=== PATIENT | female | born 1980 | race Caucasian/White ===

== ENCOUNTER 2018-06-24 00:03 | Emergency (ER) | payer MEDICAID ==
[~2018-06-24] VITALS: Ht 162.6 cm; Wt 104.3 kg
[2018-06-24 00:28] VITALS: Ht 162.6 cm; Wt 104.3 kg
[2018-06-24 02:24] VITALS: BP 163/89
== END 2018-06-24 02:24 | disposition home or self-care (01) ==
LOC: ED 00:03
DX: M25.562 Pain in left knee (principal)

== ENCOUNTER 2020-11-22 10:16 | Emergency (ER) | payer BC ==
[~2020-11-22] VITALS: Ht 165.1 cm; Wt 104.3 kg
[2020-11-22 10:28] VITALS: Ht 165.1 cm; Wt 104.3 kg
[2020-11-22 12:04] LABS: microscopic required? YES; urine erythrocyte NEGATIVE (NEGATIVE)
[2020-11-22 12:05] LABS: BASOPHIL % 0.9 % (0.2-1.3); PLATELET COUNT 375 x10^3mcL (179-408)
[2020-11-22 12:12] LABS: RED CELL DISTRIBUTION WIDTH 15.6 % (12.3-17.7)
[2020-11-22 12:18] LABS: CALCIUM 8.8 mg/dL (8.5-10.1); CARBON DIOXIDE 25.1 mmol/L (21-32); CHLORIDE SERUM 99 mmol/L (98-107); CREATININE SERUM 0.6 mg/dL (0.6-1.0); GFR1 > 60 mL/min; GLUCOSE SERUM 106 mg/dL (74-106); POTASSIUM SERUM 3.8 mmol/L (3.5-5.1); SODIUM SERUM 134 mmol/L (136-145)
[2020-11-22 12:23] LABS: ALBUMIN 3.6 g/dL (3.4-5.0); ALKALINE PHOSPHATASE 91 U/L (46-116); ALT/SGPT 26 U/L (14-59); AST/SGOT 12 U/L (15-37); BILIRUBIN TOTAL 0.2 mg/dL (0.20-1.00); LIPASE 76 IU/L (73-393); TOTAL PROTEIN, SERUM 7.6 g/dL (6.4-8.2)
[2020-11-22 14:11] VITALS: BP 127/88
== END 2020-11-22 14:11 | disposition home or self-care (01) ==
LOC: ED 10:16
PROVIDERS: Emergency Medicine
DX: K29.70 Gastritis, unspecified, without bleeding (principal); Z90.49 Acquired absence of other specified parts of digestive tract